=== PATIENT | female | born 1960 | race Caucasian/White ===

== ENCOUNTER 2019-01-15 01:10 | Emergency (ER) | payer BC, MEDICAID ==
[~2019-01-15] VITALS: Wt 76.8 kg
[2019-01-15] MEDS ORDERED: ALPR0.5T PO (04:44)
--- NOTE | 2019-01-15 04:48 | ERD ---
ER Documentation Chief Complaint Chief Complaint bibRA from home for anxiety +denies CP hx:anxiety HPI This is a 58-year-old female brought in from home for anxiety. She denies chest pain but patient states that she has a history of anxiety. Denies any fevers chills. She did complain of bilateral hand numbness and perioral numbness in bilateral feet numbness. Denies any weakness. Denies any visual acuity changes. ROS All systems reviewed and are negative except as per history of present illness. Medications Home Meds Active Scripts Alprazolam* (Xanax*) 0.5 Mg Tab, 0.5 MG PO Q8H PRN for ANXIETY, #14 TAB Prov:LUCIANO ANDERSON 01/15/19 Allergies Allergies: Coded Allergies: No Known Drug Allergies (Verified Allergy, Mild, 01/10/08) PMhx/Soc Medical and Surgical Hx: pt denies Medical Hx History of Surgery: Yes (Hysterectomy) Anesthesia Reaction: No Hx Alcohol Use: No Hx Substance Use: No Hx Tobacco Use: No Smoking Status: Never smoker Physical Exam Vitals Vital Signs Date Temp Pulse Resp B/P (MAP) Pulse Ox O2 O2 Flow FiO2 Time Delivery Rate 01/15/19 64 16 120/71 99 Room Air 03:10 (87) 01/15/19 97.5 83 16 131/70 96 01:17 (90) Physical Exam Const: No acute distress Head: Atraumatic Eyes: Normal Conjunctiva ENT: Normal External Ears, Nose and Mouth. Neck: Full range of motion. No meningismus. Resp: Clear to auscultation bilaterally Cardio: Regular rate and rhythm, no murmurs Abd: Soft, non tender, non distended. Normal bowel sounds Skin: No petechiae or rashes Back: No midline or flank tenderness Ext: No cyanosis, or edema Neur: Awake and alert Psych: Normal Mood and Affect Result Diagram: 01/15/1933801/15/19338 Results 24 hrs Laboratory Tests Test 01/15/19 03:09 01/15/19 03:39 Bedside Glucose 149 mg/dL White Blood Count 8.8 10^3/ul Red Blood Count 4.62 10^6/ul Hemoglobin 12.3 g/dl Hematocrit 38.9 % Mean Corpuscular Volume 84.2 fl Mean Corpuscular Hemoglobin 26.6 pg Mean Corpuscular Hemoglobin Concent 31.6 g/dl Red Cell Distribution Width 12.9 % Platelet Count 194 10^3/UL Mean Platelet Volume 9.8 fl Immature Granulocytes % 0.300 % Neutrophils % 86.1 % Lymphocytes % 8.6 % Monocytes % 4.4 % Eosinophils % 0.1 % Basophils % 0.5 % Nucleated Red Blood Cells % 0.0 /100WBC Immature Granulocytes # 0.030 10^3/ul Neutrophils # 7.6 10^3/ul Lymphocytes # 0.8 10^3/ul Monocytes # 0.4 10^3/ul Eosinophils # 0.0 10^3/ul Basophils # 0.0 10^3/ul Nucleated Red Blood Cells # 0.0 10^3/ul Sodium Level 142 mmol/L Potassium Level 3.9 mmol/L Chloride Level 106 mmol/L Carbon Dioxide Level 27 mmol/L Anion Gap 9 Blood Urea Nitrogen Pending Creatinine Pending Est Glomerular Filtrat Rate mL/min Pending Glucose Level Pending Calcium Level Pending Total Bilirubin Pending Direct Bilirubin Pending Indirect Bilirubin Pending Aspartate Amino Transf (AST/SGOT) Pending Alanine Aminotransferase (ALT/SGPT) Pending Alkaline Phosphatase Pending Troponin I < 0.012 ng/ml B-Type Natriuretic Peptide Pending Total Protein Pending Albumin Pending Globulin Pending Albumin/Globulin Ratio Pending Procedures/MDM EKG: Rate/Rhythm: [Normal Sinus Rhythm] QRS, ST, T-waves: [No changes consistent w/ acute ischemia] Impression: [No evidence of ischemia or arrhythmia] Chest X-ray 1V Interpreted by me: Soft Tissue: No acute abnormalities Bones: No acute abnormalities Mediastinum/Cardiac Silhouette/Lungs: [No acute abnormalities] Medical decision making: Patient's thoracic symptoms have stabilized while in the department and are stable for outpatient follow up. Exam and work up not consistent w/ ischemia, arrhythmia, PE or dissection. Departure Diagnosis: Primary Impression: Anxiety Condition: Stable Patient Instructions: Anxiety Reaction LUCIANO ANDERSON Jan 15, 2019 04:48
[2019-01-15 05:10] VITALS: BP 102/71; PULSE 65; RESP 16
== END 2019-01-15 05:10 | disposition home or self-care (01) ==
LOC: FTE 01:10 → E/R 05:10
DX: F41.9 Anxiety disorder, unspecified (principal); R40.2142 Coma scale, eyes open, spontaneous, at arrival to emergency department; R40.2362 Coma scale, best motor response, obeys commands, at arrival to emergency department
CPT/HCPCS: 36415; 71045; 80053; 82962; 83880; 84484; 85025; 93005; 99285; Z7610